=== PATIENT | male | born 1995 | race Hispanic/Latino ===

== ENCOUNTER 2019-02-18 05:36 | Emergency (ER) | payer OTHER ==
[2019-02-18] MEDS ORDERED: ACETAMINOPHEN EXTRA STRENGTH 500 MG TABLET ONE (06:19)
== END 2019-02-18 06:41 | disposition home or self-care (01) ==
LOC: EDH 05:36 → EEVIPCON 05:36 → EDH 06:41
DX: G40.909 Epilepsy, unspecified, not intractable, without status epilepticus (principal)